=== PATIENT | male | born 1945 | race Caucasian/White ===

== ENCOUNTER 2022-09-15 12:53 | Outpatient (CLI) | payer MEDICARE, OTHER | END 2022-09-15 12:54 | disposition home or self-care (01) | LOC: CSHWCC 12:53 | PROVIDERS: ATTEND Nurse Practitioner Family | DX: M27.2 Inflammatory conditions of jaws (principal) | CPT/HCPCS: 82962; 97139; G0277; 36416 ==

== ENCOUNTER 2022-09-16 13:03 | Outpatient (CLI) | payer MEDICARE, OTHER | END 2022-09-16 13:04 | disposition home or self-care (01) | LOC: CSHWCC 13:03 | PROVIDERS: ATTEND Nurse Practitioner Family | DX: M27.2 Inflammatory conditions of jaws (principal) | CPT/HCPCS: 82962; 97139; G0277; 36416 ==

== ENCOUNTER 2022-09-17 09:20 | Outpatient (CLI) | payer MEDICARE, OTHER | END 2022-09-17 09:21 | disposition home or self-care (01) | LOC: CSHWCC 09:20 | PROVIDERS: ATTEND Nurse Practitioner Family | DX: M27.2 Inflammatory conditions of jaws (principal) | CPT/HCPCS: 97139; G0277 ==

== ENCOUNTER 2022-09-21 12:56 | Outpatient (CLI) | payer MEDICARE, OTHER | END 2022-09-21 12:57 | disposition home or self-care (01) | LOC: CSHWCC 12:56 | PROVIDERS: ATTEND Nurse Practitioner Family | DX: M27.2 Inflammatory conditions of jaws (principal) | CPT/HCPCS: 97139; G0277 ==

== ENCOUNTER 2022-09-23 13:01 | Outpatient (CLI) | payer MEDICARE, OTHER | END 2022-09-23 13:02 | disposition home or self-care (01) | LOC: CSHWCC 13:01 | PROVIDERS: ATTEND Nurse Practitioner Family | DX: M27.2 Inflammatory conditions of jaws (principal) | CPT/HCPCS: 97139; G0277 ==

== ENCOUNTER 2022-09-30 08:07 | Outpatient (CLI) | payer MEDICARE, OTHER | END 2022-09-30 08:08 | disposition home or self-care (01) | LOC: CSHWCC 08:07 | PROVIDERS: ATTEND Nurse Practitioner Family | DX: M27.2 Inflammatory conditions of jaws (principal) ==

== ENCOUNTER 2022-10-06 08:05 | Outpatient (CLI) | payer MEDICARE, OTHER | END 2022-10-06 08:06 | disposition home or self-care (01) | LOC: CSHWCC 08:05 | PROVIDERS: ATTEND Nurse Practitioner Family | DX: M27.2 Inflammatory conditions of jaws (principal) ==

== ENCOUNTER 2022-10-07 08:09 | Outpatient (CLI) | payer MEDICARE, OTHER | END 2022-10-07 08:10 | disposition home or self-care (01) | LOC: CSHWCC 08:09 | PROVIDERS: ATTEND Nurse Practitioner Family | DX: M27.2 Inflammatory conditions of jaws (principal) ==

== ENCOUNTER 2022-10-12 08:10 | Outpatient (CLI) | payer MEDICARE, OTHER | END 2022-10-12 08:11 | disposition home or self-care (01) | LOC: CSHWCC 08:10 | PROVIDERS: ATTEND Nurse Practitioner Family | DX: M27.2 Inflammatory conditions of jaws (principal) | CPT/HCPCS: 97139; G0277 ==

== ENCOUNTER 2022-10-13 08:05 | Outpatient (CLI) | payer MEDICARE, OTHER | END 2022-10-13 08:06 | disposition home or self-care (01) | LOC: CSHWCC 08:05 | PROVIDERS: ATTEND Nurse Practitioner Family | DX: M27.2 Inflammatory conditions of jaws (principal) | CPT/HCPCS: 97139; G0277 ==

== ENCOUNTER 2022-10-14 08:13 | Outpatient (CLI) | payer MEDICARE, OTHER | END 2022-10-14 08:14 | disposition home or self-care (01) | LOC: CSHWCC 08:13 | PROVIDERS: ATTEND Nurse Practitioner Family | DX: M27.2 Inflammatory conditions of jaws (principal) ==

== ENCOUNTER 2022-10-18 08:11 | Outpatient (CLI) | payer MEDICARE, OTHER | END 2022-10-18 08:12 | disposition home or self-care (01) | LOC: CSHWCC 08:11 | PROVIDERS: ATTEND Nurse Practitioner Family | DX: M27.2 Inflammatory conditions of jaws (principal) ==

== ENCOUNTER 2022-10-19 13:03 | Outpatient (CLI) | payer MEDICARE, OTHER | END 2022-10-19 13:04 | disposition home or self-care (01) | LOC: CSHWCC 13:03 | PROVIDERS: ATTEND Nurse Practitioner Family | DX: M27.2 Inflammatory conditions of jaws (principal) ==

== ENCOUNTER 2022-11-29 10:12 | Outpatient (CLI) | payer MEDICARE, OTHER | END 2022-11-29 10:13 | disposition home or self-care (01) | LOC: CSHWCC 10:12 | PROVIDERS: ATTEND Nurse Practitioner Family | DX: M27.2 Inflammatory conditions of jaws (principal) | CPT/HCPCS: 82962; 97139; G0277; 36416 ==

== ENCOUNTER 2022-11-30 08:08 | Outpatient (CLI) | payer MEDICARE, OTHER | END 2022-11-30 08:09 | disposition home or self-care (01) | LOC: CSHWCC 08:08 | PROVIDERS: ATTEND Nurse Practitioner Family | DX: M27.2 Inflammatory conditions of jaws (principal) | CPT/HCPCS: G0277 ==

== ENCOUNTER 2022-12-01 08:10 | Outpatient (CLI) | payer MEDICARE, OTHER | END 2022-12-01 08:11 | disposition home or self-care (01) | LOC: CSHWCC 08:10 | PROVIDERS: ATTEND Nurse Practitioner Family | DX: M27.2 Inflammatory conditions of jaws (principal) | CPT/HCPCS: G0277 ==

== ENCOUNTER 2022-12-02 08:19 | Outpatient (CLI) | payer MEDICARE, OTHER | END 2022-12-02 08:20 | disposition home or self-care (01) | LOC: CSHWCC 08:19 | PROVIDERS: ATTEND Nurse Practitioner Family | DX: M27.2 Inflammatory conditions of jaws (principal) | CPT/HCPCS: 97139; G0277 ==

== ENCOUNTER 2022-12-03 08:13 | Outpatient (CLI) | payer MEDICARE, OTHER | END 2022-12-03 08:14 | disposition home or self-care (01) | LOC: CSHWCC 08:13 | PROVIDERS: ATTEND Nurse Practitioner Family | DX: M27.2 Inflammatory conditions of jaws (principal) | CPT/HCPCS: 97139; G0277 ==

== ENCOUNTER 2022-12-06 09:22 | Outpatient (CLI) | payer MEDICARE, OTHER | END 2022-12-06 09:23 | disposition home or self-care (01) | LOC: CSHWCC 09:22 | PROVIDERS: ATTEND Nurse Practitioner Family | DX: M27.2 Inflammatory conditions of jaws (principal) | CPT/HCPCS: G0277 ==

== ENCOUNTER 2022-12-07 08:07 | Outpatient (CLI) | payer MEDICARE, OTHER | END 2022-12-07 08:08 | disposition home or self-care (01) | LOC: CSHWCC 08:07 | PROVIDERS: ATTEND Nurse Practitioner Family | DX: M27.2 Inflammatory conditions of jaws (principal) | CPT/HCPCS: 97139; G0277 ==

== ENCOUNTER 2022-12-08 08:12 | Outpatient (CLI) | payer MEDICARE, OTHER | END 2022-12-08 08:13 | disposition home or self-care (01) | LOC: CSHWCC 08:12 | PROVIDERS: ATTEND Nurse Practitioner Family | DX: M27.2 Inflammatory conditions of jaws (principal) | CPT/HCPCS: 97139; G0277 ==

== ENCOUNTER 2022-12-13 08:04 | Outpatient (CLI) | payer MEDICARE, OTHER | END 2022-12-13 08:05 | disposition home or self-care (01) | LOC: CSHWCC 08:04 | PROVIDERS: ATTEND Nurse Practitioner Family | DX: M27.2 Inflammatory conditions of jaws (principal) | CPT/HCPCS: G0277 ==

== ENCOUNTER 2022-12-14 08:12 | Outpatient (CLI) | payer MEDICARE, OTHER | END 2022-12-14 08:13 | disposition home or self-care (01) | LOC: CSHWCC 08:12 | PROVIDERS: ATTEND Nurse Practitioner Family | DX: M27.2 Inflammatory conditions of jaws (principal) | CPT/HCPCS: 97139; G0277 ==